=== PATIENT | female | born 1990 ===

== ENCOUNTER 2016-08-12 11:20 | Emergency (ER) | payer SELFPAY ==
[~2016-08-12] VITALS: Ht 157.5 cm; Wt 61.2 kg
== END 2016-08-12 14:19 | disposition short-term general hospital (02) ==
LOC: ER 11:20
DX: S06.0X9A Concussion with loss of consciousness of unspecified duration, initial encounter (principal); M62.838 Other muscle spasm; F17.210 Nicotine dependence, cigarettes, uncomplicated; V89.2XXA Person injured in unspecified motor-vehicle accident, traffic, initial encounter